=== PATIENT | male | born 1945 ===

== ENCOUNTER 2017-09-02 07:17 | Day surgery (SDC) | payer MEDICARE, OTHER ==
[2017-08-29 09:53] VITALS: BMI 29.6
[~2017-09-02 07:17] MED LIST: LACTATED RINGERS 1,000 ML IV SCH; LIDOCAINE 1% 20 ML VIAL (10MG/ML) FOR IV START INTRADERMA PRN
[2017-09-02 07:39] VITALS: RESP 18; TEMP 98.8
[2017-09-02 08:05] LABS: Glucose,Whole Blood 81 mg/dL (75-99)
[2017-09-02] MEDS ORDERED: LIDOCAINE 1% INJ 10MG/ML (20 ML MDV) ONE (09:13)
[2017-09-02] MEDS ORDERED: PROPOFOL 10 MG/ML 20 ML VIAL IV ONE (09:13)
[2017-09-02 10:32] VITALS: BP 128/81; PULSE 54
--- NOTE | 2017-09-07 20:28 | P.PCN ---
Date of Procedure: 09/02/17 Procedure(s) Performed: Procedure: Colonoscopy to hepatic flexure. Preoperative diagnosis: Altered bowel function and incomplete colonoscopy last month because of poor preparation. Postoperative diagnosis: 1. Exam could not be completed safely proximal to the hepatic flexure because of redundancy of the sigmoid and looping of the endoscope. 2. Mild diverticulosis with no evidence of acute diverticulitis or strictures. 3. No polyps, tumors or mucosal abnormalities were noted in the areas examined. Preparation: GoLYTELY prep. Sedation: Was provided by anesthesia. Brief clinical history: The patient is a 72-year-old male who had an initial evaluation on July 18, 2017. His exam could not be completed because of poor preparation and he was advised repeat exam after 2 day preparation in a week or 2. The patient was subsequently seen in the office 08/13/2017 because of diarrhea alternating with constipation and he was scheduled for a repeat attempt today. Procedure: With the patient on his left lateral decubitus position and after informed consent and adequate sedation, the perianal area was inspected and it did not show any fissures or fistulas. There were no masses felt on digital rectal examination. The Olympus CFQ 160L video colonoscope was then inserted in the rectum in the usual fashion and was advanced. There was redundancy in the sigmoid and this resulted in looping of the endoscope. I was not able to pass the endoscope safely proximal to the hepatic flexure. In the areas examined, I noted mild diverticulosis but there was no evidence of acute diverticulitis or strictures. No polyps, tumors or mucosal abnormalities were noted in the areas examined. I retroflexed the endoscope in the rectum before the endoscope was withdrawn. The patient tolerated the procedure well. Plan: I discussed at length the findings with his niece who is his legal guardian. We discussed future possible investigation including CT colonography. He has a follow-up appointment scheduled in our [place] office in [place] early September 2017. We will keep you updated on his progress.
== END 2017-09-02 10:57 | disposition home health service (06) ==
LOC: ORWHC2ENDO 07:17
DX: K57.90 Diverticulosis of intestine, part unspecified, without perforation or abscess without bleeding (principal); R19.7 Diarrhea, unspecified; K59.00 Constipation, unspecified; Q43.8 Other specified congenital malformations of intestine; I25.10 Atherosclerotic heart disease of native coronary artery without angina pectoris; I10 Essential (primary) hypertension; K21.9 Gastro-esophageal reflux disease without esophagitis; E11.9 Type 2 diabetes mellitus without complications; E78.5 Hyperlipidemia, unspecified; I25.2 Old myocardial infarction; Z95.810 Presence of automatic (implantable) cardiac defibrillator
CPT/HCPCS: 88305; 45380; J2001; J2704

== ENCOUNTER 2019-06-06 15:18 | Inpatient (IN) | payer MEDICARE, OTHER ==
[2019-06-06] MEDS: SODIUM CHLORIDE 0.9% 1,000 ML IV STA ×2 (15:30→16:19)
[2019-06-06 16:00] LABS: Glucose,Whole Blood 177 mg/dL (75-99)
[2019-06-06 16:00] LABS: HCT 40.7 % (39.0-53.0); HGB 13.4 gm/dL (13.0-17.5); MCH 32.3 pg (25.0-35.0); MCHC 32.9 g/dL (31.0-37.0); MCV 98.1 fL (80.0-100.0); Mean Platelet Volume 6.3; Platelet Count 251 k/uL (150-450); RBC 4.15 m/uL (4.30-5.90); RDW 13.3 % (11.5-15.5); WBC 6.3 k/uL (3.8-10.6)
[2019-06-06 16:10] LABS: Band Neutrophils % 8 %; Lymphocytes # (M) 0.95 k/uL (1.0-4.8); Monocytes # (M) 0.95 k/uL (0-1.0); Neutrophils % (M) 62 %; Nucleated Red Blood Cells 0 /100 WBC (0-0); Total Cells Counted 100
[2019-06-06 16:11] LABS: Poikilocytosis (M) Present
[2019-06-06 16:15] LABS: Albumin 3.5 g/dL (3.5-5.0); Calcium 8.3 mg/dL (8.4-10.2); Total Bilirubin 1.3 mg/dL (0.2-1.3); Total Protein 6.2 g/dL (6.3-8.2)
[2019-06-06] MEDS ORDERED: LIDOCAINE URO-JET JELLY 2% 5 ML KIT URETHRAL ONE (16:17)
[2019-06-06 16:22] LABS: Potassium 8.4 mmol/L (3.5-5.1)
[2019-06-06] MEDS ORDERED: SODIUM BICARB 8.4% 50 ML SYR (1 MEQ/ML) IV STA (16:23)
[2019-06-06] MEDS ORDERED: CALCIUM CHLORIDE 100 MG/ML 10 ML SYRINGE IVP STA (16:23)
[2019-06-06] MEDS ORDERED: DEXTROSE 50% SYRINGE 50 ML IVP STA (16:23)
[2019-06-06] MEDS ORDERED: INSULIN REGULAR 100 UNIT/ML VIAL IV ONE ×2 (16:23→22:36)
[2019-06-06 16:29] LABS: INR 1.1 (<1.2); Partial Thromboplastin Time 27.1 sec (22.0-30.0); Prothrombin Time 11.4 sec (9.0-12.0)
[2019-06-06] MEDS ORDERED: CALCIUM GLUCONATE 1 GM in SODIUM CHLORIDE 0.9% 100 ML IVPB ONE ×2 (16:30→23:00)
[2019-06-06] MEDS ORDERED: CALCIUM CHLORIDE 1,000 MG in SODIUM CHLORIDE 0.9% 100 ML IV STA (16:30)
[2019-06-06] MEDS ORDERED: PIPERACILLIN-TAZOBACTAM 3.375 GM in SODIUM CHLORIDE 0.9% 100 ML IVPB STA (16:31)
[2019-06-06 16:32] LABS: Magnesium 2.7 mg/dL (1.6-2.3); Phosphorus 6.4 mg/dL (2.5-4.5)
[2019-06-06] MEDS ORDERED: ALBUTEROL NEBULIZED 2.5 MG/3 ML INHALATION STA (16:33)
[2019-06-06] MEDS ORDERED: CALCIUM CHLORIDE 1 GM/10 ML VIAL ONE (16:43)
[2019-06-06 16:47] LABS: VBG PH 7.2 (7.31-7.41)
--- NOTE | 2019-06-06 16:51 | XR ---
EXAMINATION TYPE: XR chest 1V portable DATE OF EXAM: 06/06/2019 COMPARISON: NONE HISTORY: Syncope and bloating TECHNIQUE: Single frontal view of the chest is obtained. FINDINGS: There is no heart failure nor confluent pneumonic infiltrate. There is poor inspiration. T here are chest leads. There is moderate intestinal gas and fecal material. IMPRESSION: There is some mild atelectasis at the lung bases. Poor inspiration. There is probably so me intestinal ileus.
--- NOTE | 2019-06-06 16:51 | XR ---
EXAMINATION TYPE: XR KUB portable DATE OF EXAM: 06/06/2019 COMPARISON: NONE HISTORY: Syncope Pain TECHNIQUE: Single view FINDINGS: Pelvic ring is intact. Proximal femurs are intact. There is retained fecal material in the large bowel. IMPRESSION: Constipation. No fracture.
--- NOTE | 2019-06-06 17:34 | ED ---
Weakness HPI - General Chief complaint: Syncope Stated complaint: hypotension, syncope Time Seen by Provider: 06/06/19 16:14 Source: EMS, RN notes reviewed, old records reviewed Mode of arrival: EMS Limitations: altered mental status - History of Present Illness Initial comments: This is a 74-year-old male the ER for evaluation he presents today for laura luation regards to decreased responsiveness, patient is a poor historian. Per staff patient's coming from [facility] where he was very weak able to stand and then the symptoms the ER. Per EMS patient's blood pressure was low he did notice his stomach appeared to be significantly distended. Patient again is unable to give history. He is unable to give any complaint. Again blood pressure low heart rate MD Complaint: generalized weakness -: days(s) Location: generalized Severity: moderate Severity scale (1-10): 3 Quality: other (no complaints) Consistency: constant (weakness) Improves with: none Worsens with: movement Context: history of similar Associated Symptoms: chest pain, syncope (near syncope) - Related Data Home Medications Medication Instructions Recorded Confirmed Aspirin [Adult Low Dose Aspirin EC] 81 mg PO DAILY 07/18/17 06/06/19 Atenolol [Tenormin] 25 mg PO QAM 07/18/17 06/06/19 Furosemide [Lasix] 10 mg PO QAM 07/18/17 06/06/19 Lisinopril [Zestril] 2.5 mg PO HS 07/18/17 06/06/19 Metoclopramide [Reglan] 5 mg PO BID 07/18/17 06/06/19 Nitroglycerin Sl Tabs [Nitrostat] 1 tab SUBLINGUAL DAILY PRN 07/18/17 06/06/19 Polyethylene Glycol 3350 [Miralax] 17 gm PO Q48H 07/18/17 06/06/19 Venlafaxine HCl ER [Effexor Xr] 75 mg PO HS 07/18/17 06/06/19 metFORMIN HCL [Glucophage Xr] 250 mg PO HS 07/18/17 06/06/19 Atorvastatin [Lipitor] 40 mg PO HS 08/29/17 06/06/19 Cholecalciferol [Vitamin D3] 1,000 unit PO DAILY 08/29/17 06/06/19 Cyanocobalamin (Vitamin B-12) 1,000 mcg PO DAILY 08/29/17 06/06/19 [Vitamin B-12] Ibuprofen 400 mg PO BID 08/29/17 06/06/19 Melatonin 10 mg PO HS 08/29/17 06/06/19 Sulfamethox-Tmp 800-160Mg [Bactrim 1 tab PO Q12HR 08/29/17 06/06/19 DS 800-160 mg] Venlafaxine HCl [Effexor XR] 150 mg PO HS 08/29/17 06/06/19 risperiDONE [RisperDAL] 1 mg PO BID@1600,2000 08/29/17 06/06/19 Calcium Polycarbophil [Fiber-Lax] 1,250 mg PO BID 06/06/19 06/06/19 Ibuprofen [Motrin] 400 mg PO BID 06/06/19 06/06/19 Loperamide [Imodium] 4 mg PO DAILY PRN MDD 4 CAPS/24HRS 06/06/19 06/06/19 Pantoprazole [Protonix] 40 mg PO BID 06/06/19 06/06/19 Allergies Allergy/AdvReac Type Severity Reaction Status Date / Time No Known Allergies Allergy Verified 06/06/19 16:00 Review of Systems ROS Statement: Those systems with pertinent positive or pertinent negative responses have been documented in the HPI. ROS Other: All systems not noted in ROS Statement are negative. Past Medical History Past Medical History: Coronary Artery Disease (CAD), Chest Pain / Angina, Heart Failure, Dementia, Diabetes Mellitus, GERD/Reflux, Hyperlipidemia, Hypertension Additional Past Medical History / Comment(s): CURRENTLY ON ANTIBX FOR UTI, HX. 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 ATTEMPTED COLONOSCOPY Past Anesthesia/Blood Transfusion Reactions: No Reported Reaction Past Psychological History: No Psychological Hx Reported Smoking Status: Former smoker Past Alcohol Use History: None Reported Past Drug Use History: None Reported General Exam Limitations: altered mental status General appearance: alert, in no apparent distress Head exam: Present: atraumatic, normocephalic, normal inspection Eye exam: Present: normal appearance, PERRL, EOMI. Absent: scleral icterus, c onjunctival injection, periorbital swelling ENT exam: Present: normal exam, mucous membranes moist Neck exam: Present: normal inspection. Absent: tenderness, meningismus, lymphadenopathy Respiratory exam: Present: normal lung sounds bilaterally. Absent: respiratory distress, wheezes, rales, rhonchi, stridor Cardiovascular Exam: Present: regular rate, normal rhythm, normal heart sounds. Absent: systolic murmur, diastolic murmur, rubs, gallop, clicks GI/Abdominal exam: Present: soft, normal bowel sounds. Absent: distended, tenderness, guarding, rebound, rigid Extremities exam: Present: normal inspection, full ROM, normal capillary refill. Absent: tenderness, pedal edema, joint swelling, calf tenderness Back exam: Present: normal inspection Neurological exam: Present: alert, oriented X3, CN II-XII intact Psychiatric exam: Present: normal affect, normal mood Skin exam: Present: warm, dry, intact, normal color. Absent: rash Course Vital Signs 06/06/19 06/06/19 06/06/19 15:26 16:30 16:46 Temperature 97.5 F L Pulse Rate 60 58 L Respiratory 18 Rate Blood Pressure 84/50 77/55 O2 Sat by Pulse 95 97 Oximetry 06/06/19 06/06/19 06/06/19 17:00 17:02 17:37 Temperature Pulse Rate 70 73 Respiratory Rate Blood Pressure 102/52 O2 Sat by Pulse Oximetry 06/06/19 06/06/19 06/06/19 17:40 18:20 19:16 Temperature 97.9 F Pulse Rate 78 74 76 Respiratory 34 H 30 H 18 Rate Blood Pressure 87/58 85/62 113/79 O2 Sat by Pulse 97 96 96 Oximetry 06/06/19 06/06/19 06/06/19 19:37 19:50 20:00 Temperature Pulse Rate 77 78 80 Respiratory 19 18 18 Rate Blood Pressure 107/74 102/68 91/69 O2 Sat by Pulse 98 98 Oximetry 06/06/19 20:26 Temperature Pulse Rate 81 Respiratory 17 Rate Blood Pressure 104/80 O2 Sat by Pulse 97 Oximetry - Reevaluation(s) Reevaluation #1: 06/06/19 17:48 Medical records reviewed Reevaluation #2: 06/06/19 17:48 Patient's potassium comes back severely elevated he is bradycardic no significant family was fevers. Patient given calcium treatment call made for nephrology and possible dialysis Reevaluation #3: 10/27/19 17:49 Patient is difficult to pass Serrano with blood in the bladder, patient given rectal exam did is likely constipation and is bowel no significant rectal impaction noted but he does have a lot of stool flowing with digital stimulation 06/06/19 20:51 Significant improvement here in both patient's lactic and potassium level Reevaluation #4: 06/06/19 20:51 Patient has improvement heart rate, blood pressure remains about 100/60 - Consultations Consultation #1: Nephrology is paged History of surgeries paged for catheter placement for dialysis EKG Findings - EKG Comments: EKG Findings:: EKG shows sinus bradycardia rate of 61, NJ 308, QRS 172, QTc 479 EKG significant for hyperkalemia Procedures - Central Line Placement Right IJ Consent Obtained: verbal consent Patient Placed on Monitor/Pulse Ox: Yes MD Prep: mask, gown, gloves Central Line Prep: Chlorhexidine scrub Local Anesthesia Used: Lidocaine 1% Ultrasound Used for Placement: Yes Central Line Lumen Inserted: triple Central Line Position: good blood return, all ports aspirated, flushed, capped, sutured in place with 3-0 nylon Dressing Applied: Tegaderm Post Procedure X-Ray: tip of catheter in good position (RA) Patient Tolerated Procedure: well Complications: none - Rectal Disimpaction Consent Obtained: verbal consent Indication: fecal impaction Procedural Sedation: No Sedation/Analgesia: none Technique: manual disimpaction with gloved finger Result: significant stool output Complications: none Patient Tolerated Procedure: well Medical Decision Making - Medical Decision Making 74 male the ER for evaluation of weakness and near syncope secondary dehydration bradycardia secondary to hyperkalemia. Is improved. Patient's medically hydrated. Patient will be admitted to telemetry for evaluation and treatment - Lab Data Result diagrams: 06/06/19 15:43 06/06/19 19:22 Lab Results 06/06/19 06/06/19 06/06/19 Range/Units 15:43 15:43 15:43 WBC 6.3 (3.8-10.6) k/uL RBC 4.15 L (4.30-5.90) m/uL Hgb 13.4 (13.0-17.5) gm/dL Hct 40.7 (39.0-53.0) % MCV 98.1 (80.0-100.0) fL MCH 32.3 (25.0-35.0) pg MCHC 32.9 (31.0-37.0) g/dL RDW 13.3 (11.5-15.5) % Plt Count 251 (150-450) k/uL Neutrophils % (Manual) 62 % Band Neutrophils % 8 % Lymphocytes % (Manual) 15 % Monocytes % (Manual) 15 % Neutrophils # (Manual) 4.40 (1.3-7.7) k/uL Lymphocytes # (Manual) 0.95 L (1.0-4.8) k/uL Monocytes # (Manual) 0.95 (0-1.0) k/uL Nucleated RBCs 0 (0-0) /100 WBC Manual Slide Review Performed Poikilocytosis (manual Present PT (9.0-12.0) sec INR (<1.2) APTT (22.0-30.0) sec VBG pH (7.31-7.41) VBG pCO2 (37-51) mmHg VBG HCO3 (24-28) mmol/L Sodium 136 L (137-145) mmol/L Potassium 8.4 H* (3.5-5.1) mmol/L Chloride 107 (98-107) mmol/L Carbon Dioxide 15 L (22-30) mmol/L Anion Gap 14 mmol/L BUN 63 H (9-20) mg/dL Creatinine 2.50 H (0.66-1.25) mg/dL Est GFR (CKD-EPI)AfAm 29 (>60 ml/min/1.73 sqM) Est GFR (CKD-EPI)NonAf 25 (>60 ml/min/1.73 sqM) Glucose 174 H (74-99) mg/dL POC Glucose (mg/dL) (75-99) mg/dL POC Glu Biztalk Developer ID Lactic Ac Sepsis Rflx Plasma Lactic Acid Alvaro 4.9 H* (0.7-2.0) mmol/L Calcium 8.3 L (8.4-10.2) mg/dL Phosphorus (2.5-4.5) mg/dL Magnesium (1.6-2.3) mg/dL Total Bilirubin 1.3 (0.2-1.3) mg/dL AST 41 (17-59) U/L ALT 29 (21-72) U/L Alkaline Phosphatase 94 (38-126) U/L Troponin I (0.000-0.034) ng/mL Total Protein 6.2 L (6.3-8.2) g/dL Albumin 3.5 (3.5-5.0) g/dL 06/06/19 06/06/19 06/06/19 Range/Units 15:43 15:43 15:43 WBC (3.8-10.6) k/uL RBC (4.30-5.90) m/uL Hgb (13.0-17.5) gm/dL Hct (39.0-53.0) % MCV (80.0-100.0) fL MCH (25.0-35.0) pg MCHC (31.0-37.0) g/dL RDW (11.5-15.5) % Plt Count (150-450) k/uL Neutrophils % (Manual) % Band Neutrophils % % Lymphocytes % (Manual) % Monocytes % (Manual) % Neutrophils # (Manual) (1.3-7.7) k/uL Lymphocytes # (Manual) (1.0-4.8) k/uL Monocytes # (Manual) (0-1.0) k/uL Nucleated RBCs (0-0) /100 WBC Manual Slide Review Poikilocytosis (manual PT 11.4 (9.0-12.0) sec INR 1.1 (<1.2) APTT 27.1 (22.0-30.0) sec VBG pH (7.31-7.41) VBG pCO2 (37-51) mmHg VBG HCO3 (24-28) mmol/L Sodium (137-145) mmol/L Potassium (3.5-5.1) mmol/L Chloride (98-107) mmol/L Carbon Dioxide (22-30) mmol/L Anion Gap mmol/L BUN (9-20) mg/dL Creatinine (0.66-1.25) mg/dL Est GFR (CKD-EPI)AfAm (>60 ml/min/1.73 sqM) Est GFR (CKD-EPI)NonAf (>60 ml/min/1.73 sqM) Glucose (74-99) mg/dL POC Glucose (mg/dL) (75-99) mg/dL POC Glu Biztalk Developer ID Lactic Ac Sepsis Rflx Plasma Lactic Acid Alvaro (0.7-2.0) mmol/L Calcium (8.4-10.2) mg/dL Phosphorus 6.4 H (2.5-4.5) mg/dL Magnesium 2.7 H (1.6-2.3) mg/dL Total Bilirubin (0.2-1.3) mg/dL AST (17-59) U/L ALT (21-72) U/L Alkaline Phosphatase (38-126) U/L Troponin I 0.016 (0.000-0.034) ng/mL Total Protein (6.3-8.2) g/dL Albumin (3.5-5.0) g/dL 06/06/19 06/06/19 06/06/19 Range/Units 15:58 16:20 16:22 WBC (3.8-10.6) k/uL RBC (4.30-5.90) m/uL Hgb (13.0-17.5) gm/dL Hct (39.0-53.0) % MCV (80.0-100.0) fL MCH (25.0-35.0) pg MCHC (31.0-37.0) g/dL RDW (11.5-15.5) % Plt Count (150-450) k/uL Neutrophils % (Manual) % Band Neutrophils % % Lymphocytes % (Manual) % Monocytes % (Manual) % Neutrophils # (Manual) (1.3-7.7) k/uL Lymphocytes # (Manual) (1.0-4.8) k/uL Monocytes # (Manual) (0-1.0) k/uL Nucleated RBCs (0-0) /100 WBC Manual Slide Review Poikilocytosis (manual PT (9.0-12.0) sec INR (<1.2) APTT (22.0-30.0) sec VBG pH 7.20 L* (7.31-7.41) VBG pCO2 45 (37-51) mmHg VBG HCO3 17 L (24-28) mmol/L Sodium (137-145) mmol/L Potassium (3.5-5.1) mmol/L Chloride (98-107) mmol/L Carbon Dioxide (22-30) mmol/L Anion Gap mmol/L BUN (9-20) mg/dL Creatinine (0.66-1.25) mg/dL Est GFR (CKD-EPI)AfAm (>60 ml/min/1.73 sqM) Est GFR (CKD-EPI)NonAf (>60 ml/min/1.73 sqM) Glucose (74-99) mg/dL POC Glucose (mg/dL) 177 H (75-99) mg/dL POC Glu Biztalk Developer ID Asim Richard Lactic Ac Sepsis Rflx Y Plasma Lactic Acid Alvaro (0.7-2.0) mmol/L Calcium (8.4-10.2) mg/dL Phosphorus (2.5-4.5) mg/dL Magnesium (1.6-2.3) mg/dL Total Bilirubin (0.2-1.3) mg/dL AST (17-59) U/L ALT (21-72) U/L Alkaline Phosphatase (38-126) U/L Troponin I (0.000-0.034) ng/mL Total Protein (6.3-8.2) g/dL Albumin (3.5-5.0) g/dL 06/06/19 06/06/19 Range/Units 19:22 19:44 WBC (3.8-10.6) k/uL RBC (4.30-5.90) m/uL Hgb (13.0-17.5) gm/dL Hct (39.0-53.0) % MCV (80.0-100.0) fL MCH (25.0-35.0) pg MCHC (31.0-37.0) g/dL RDW (11.5-15.5) % Plt Count (150-450) k/uL Neutrophils % (Manual) % Band Neutrophils % % Lymphocytes % (Manual) % Monocytes % (Manual) % Neutrophils # (Manual) (1.3-7.7) k/uL Lymphocytes # (Manual) (1.0-4.8) k/uL Monocytes # (Manual) (0-1.0) k/uL Nucleated RBCs (0-0) /100 WBC Manual Slide Review Poikilocytosis (manual PT (9.0-12.0) sec INR (<1.2) APTT (22.0-30.0) sec VBG pH (7.31-7.41) VBG pCO2 (37-51) mmHg VBG HCO3 (24-28) mmol/L Sodium (137-145) mmol/L Potassium 6.5 H* (3.5-5.1) mmol/L Chloride (98-107) mmol/L Carbon Dioxide (22-30) mmol/L Anion Gap mmol/L BUN (9-20) mg/dL Creatinine (0.66-1.25) mg/dL Est GFR (CKD-EPI)AfAm (>60 ml/min/1.73 sqM) Est GFR (CKD-EPI)NonAf (>60 ml/min/1.73 sqM) Glucose (74-99) mg/dL POC Glucose (mg/dL) (75-99) mg/dL POC Glu Biztalk Developer ID Lactic Ac Sepsis Rflx Plasma Lactic Acid Alvaro 2.1 H* (0.7-2.0) mmol/L Calcium (8.4-10.2) mg/dL Phosphorus (2.5-4.5) mg/dL Magnesium (1.6-2.3) mg/dL Total Bilirubin (0.2-1.3) mg/dL AST (17-59) U/L ALT (21-72) U/L Alkaline Phosphatase (38-126) U/L Troponin I (0.000-0.034) ng/mL Total Protein (6.3-8.2) g/dL Albumin (3.5-5.0) g/dL - Radiology Data Radiology results: report reviewed (Chest x-ray and x-ray KUB shows likely ileus versus mild obstruction, CT abdomen and pelvis is pending), image reviewed Critical Care Time Critical Care Time: Yes Total Critical Care Time: 102 Disposition Clinical Impression: Near syncope, Ileus, Dehydration, ARF (acute renal failure), Hyperkalemia Disposition: ADMITTED IP TO THIS [facility] Condition: Serious Is patient prescribed a controlled substance at d/c from ED?: No
[2019-06-06] MEDS ORDERED: SODIUM CHLORIDE 0.9% 500 ML 500 ML IV STA (18:56)
[2019-06-06] MEDS ORDERED: SODIUM CHLORIDE 0.9% 1,000 ML IV STA (18:56)
--- NOTE | 2019-06-06 19:12 | XR ---
EXAMINATION TYPE: XR chest 1V DATE OF EXAM: 06/06/2019 COMPARISON: Today HISTORY: Central line placement TECHNIQUE: Single frontal view of the chest is obtained. FINDINGS: There is right jugular catheter with the tip in the lower right atrium. Lungs are clear of consolidation. There is no heart failure. There are chest leads. There is large amount of intestinal gas. IMPRESSION: Inspiration improved slightly compared to exam earlier today. No pneumothorax. No heart failure. Intestinal ileus.
[2019-06-06] MEDS: DEXTROSE 5% IN WATER 1,000 ML with SODIUM BICARB (1 MEQ/ML) 150 ML IV SCH (19:49)
[2019-06-06] MEDS ORDERED: SENNOSIDES-DOCUSATE SODIUM 1 EACH TAB PO STA (19:57)
[2019-06-06] MEDS ORDERED: IPRATROPIUM-ALBUTEROL 3 ML NEB INHALATION PRN (20:06)
[2019-06-06] MEDS ORDERED: NALOXONE 0.4 MG/ML 1 ML VIAL IV PRN (20:06)
[2019-06-06] MEDS ORDERED: LACTATED RINGERS 1,000 ML IV SCH (20:15)
[2019-06-06] MEDS ORDERED: DOCUSATE 100 MG CAP PO SCH (21:00)
[2019-06-06] MEDS ORDERED: SENNOSIDES 8.6 MG TAB PO SCH (21:00)
--- NOTE | 2019-06-06 21:00 | CT ---
EXAMINATION TYPE: CT abdomen pelvis wo con DATE OF EXAM: 06/06/2019 COMPARISON: 05/03/2014 HISTORY: Abdominal pain and diarrhea. CT DLP: 1127.4 mGycm Automated exposure control for dose reduction was used. TECHNIQUE: Helical acquisition of images was performed from the lung bases through the pelvis. FINDINGS: Multiple axial sections were obtained from the diaphragm to the floor the pelvis without contrast. There is some patchy atelectasis at the lung bases. There is no pleural effusion. Liver shows no foca l defect. There are multiple surgical clips at the anterior aspect of the liver that could relate to previous liver resection or liver surgery. The spleen is intact. There is pancreatic atrophy. The esvin e ducts are not dilated. Gallbladder appears absent. There is no adrenal mass. Kidneys have bilateral mild hydronephrosis. There is bilateral proximal hyd roureter. The urinary bladder is large and displaced to the right side due to markedly enlarged sigmo id colon. There is no free fluid in the pelvis. There is no inguinal hernia. There is a markedly dilated rectosigmoid colon. Mid sigmoid colon measures 12 cm. There is significan t rectal fecal impaction. The rectum measures 8 cm. The remainder of the entire large bowel is dilate d with air and fluid and fecal material. Small bowel is not dilated. There is no sign of pneumoperito neum. There is no free fluid in the pelvis. There is no ascites. There is a mild degenerative first-degree L4-5 spondylolisthesis. There is no lumbar compression frac ture. Bony pelvis is intact. Impression Markedly dilated colon especially the rectosigmoid colon with rectal fecal impaction. No free air. Di lation is significantly increased compared to old CT scan. This is consistent with generalized large bowel ileus. Mild bilateral hydronephrosis increased compared to last exam and probably due to extrinsic compressi on on the distal ureters. There is some patchy atelectasis at the lung bases similar to old exam.
[2019-06-06 21:40] LABS: Calcium 8.4 mg/dL (8.4-10.2)
[2019-06-06 21:44] LABS: Potassium 6.7 mmol/L (3.5-5.1)
[2019-06-06 21:47] LABS: Glucose,Whole Blood 90 mg/dL (75-99)
[2019-06-06] MEDS ORDERED: SODIUM BICARB 8.4% 50 ML SYR (1 MEQ/ML) IV ONE (22:36)
[2019-06-06] MEDS ORDERED: DEXTROSE 10 % IN WATER 250 ML IV ONE (22:36)
[2019-06-06] MEDS ORDERED: ACETAMINOPHEN TAB 325 MG TAB PO PRN (22:51)
[2019-06-07 04:51] LABS: HCT 43.6 % (39.0-53.0); HGB 14.8 gm/dL (13.0-17.5); MCH 32.2 pg (25.0-35.0); MCV 94.7 fL (80.0-100.0); Mean Platelet Volume 6.1; Platelet Count 246 k/uL (150-450); RBC 4.61 m/uL (4.30-5.90); RDW 13.4 % (11.5-15.5); WBC 7.1 k/uL (3.8-10.6)
[2019-06-07 05:01] LABS: Albumin 3.1 g/dL (3.5-5.0); Calcium 8.3 mg/dL (8.4-10.2); Magnesium 2.6 mg/dL (1.6-2.3); Phosphorus 4.5 mg/dL (2.5-4.5); Total Bilirubin 1.1 mg/dL (0.2-1.3); Total Protein 5.7 g/dL (6.3-8.2)
[2019-06-07 05:15] LABS: Band Neutrophils % 26 %; Lymphocytes # (M) 0.43 k/uL (1.0-4.8); Monocytes # (M) 1.35 k/uL (0-1.0); Myelocytes # (M) 0.07 k/uL (0); Myelocytes % 1 %; Neutrophils % (M) 48 %; Nucleated Red Blood Cells 0 /100 WBC (0-0); Poikilocytosis (M) Present; Total Cells Counted 200
[2019-06-07] MEDS ORDERED: DEXTROSE 10 % IN WATER 250 ML IV ONE (06:03)
[2019-06-07] MEDS ORDERED: INSULIN REGULAR 100 UNIT/ML VIAL IV ONE (06:03)
[2019-06-07] MEDS ORDERED: CALCIUM GLUCONATE 1 GM in SODIUM CHLORIDE 0.9% 100 ML IVPB ONE (07:00)
[2019-06-07] MEDS: DEXTROSE 5% IN WATER 1,000 ML with SODIUM BICARB (1 MEQ/ML) 150 ML IV SCH (07:07)
[2019-06-07 07:19] LABS: Glucose,Whole Blood 233 mg/dL (75-99)
--- NOTE | 2019-06-07 07:36 | P.OP ---
Date of Procedure: 06/07/19 Description of Procedure: SURGEON: Renée Serrano DO ELECTRONIC PAGINATION SYSTEM OPERATOR: None PREOPERATIVE DIAGNOSIS: Worsening kidney injury, hyperkalemia, hematuria POSTOPERATIVE DIAGNOSIS: Same OPERATION: Placement of dialysis catheter, right femoral. Ultrasound-guided right common femoral vein access DESCRIPTION OF PROCEDURE: An ultrasound was utilized and the right common femoral vein was identified. The right groin was prepped and draped with ChloraPrep. Lidocaine was infiltrated. A multipurpose needle was utilized to access the right femoral vein with ultrasound guidance. Guidewire was passed. Dilator advanced on top of the guidewire. Right femoral catheter was placed, which was secured with 3-0 silk. Dressing applied. The patient tolerated the procedure well.
[2019-06-07] MEDS ORDERED: ENOXAPARIN 40 MG/0.4 ML SYRINGE SQ SCH (09:00)
[2019-06-07] MEDS ORDERED: PANTOPRAZOLE 40 MG/10 ML VIAL IV SCH (09:00)
--- NOTE | 2019-06-07 09:43 | CONS ---
CONSULTATION PULMONARY/CRITICAL CARE CONSULTATION: DATE OF SERVICE: 06/07/2019 This is a 74-year-old gentleman who apparently sees one of the Visiting Physicians. He apparently presented to the emergency room with hypotension, elevated lactic acid, and syncope. He also apparently had mental status changes. He was found to be a very poor historian in the emergency department. He apparently came in from an ECF where he was profoundly weak. The patient's abdomen was very distended. He himself was unable to give any history. He was apparently seen there primarily for the symptoms mentioned above, including mental status changes, hypotension, syncope, and distended abdomen. The patient was found to have hyperkalemia. Hemodialysis catheter was placed. He is undergoing hemodialysis currently. He is currently on 4 L nasal cannula. His respiratory rate is rapid. He is getting D5W with 3 amps of bicarb at 100 mL an hour. The patient was also found to have acute kidney injury. Hence, the dialysis. I asked the nurse to place an NG tube. His blood pressure is low, so I said start Levophed. We are going to check a cortisol level as well. Most of the history is obtained from the ER stacey. CURRENT HOME MEDICATIONS: Include low-dose aspirin, Tenormin, Lasix, Zestril, Reglan, nitroglycerin tablets, MiraLAX, Effexor XR, metformin, Lipitor, vitamin D3, vitamin B12, ibuprofen, melatonin, Bactrim, Effexor XR, Risperdal, Fiber-Lax, Motrin, Imodium, and Protonix. ALLERGIES: Denied. MEDICAL HISTORY: According to the ER stacey includes CAD, angina, heart failure, dementia, diabetes, GERD, hyperlipidemia, and hypertension. He is currently on Bactrim for a UTI. He apparently does have a history of congenital cognitive impairment and very delayed communication skills. He also has a prior history of MRSA infection. SURGICAL HISTORY: Includes cholecystectomy, colonoscopy, cataract surgery. SOCIAL HISTORY: Positive for previous tobacco use. No history of alcohol or illicit drug use. The patient's family history could not be obtained. No family members are present. He himself cannot give any family history. REVIEW OF SYSTEMS: Again review of systems cannot be accurately obtained. The patient is a very poor historian, does not really communicate. The patient really does not verbalize any particular complaints prior to coming to the hospital. Again most of the history is obtained from the ER stacey. PHYSICAL EXAMINATION: Current vital signs are reviewed, temperature is 99.2, heart rate 103, respiratory rate 22, blood pressure 95/56 with mean of 69, 2 L saturation 95%. Appears tachypneic. HEENT: Examination is grossly unremarkable. Nasal O2 noted. NECK: Supple. Full range of motion. No adenopathy. Neck veins are flat. CARDIOVASCULAR: Examination reveals tachycardia. Heart rate 103. It is regular. LUNGS: Reveal relatively clear breath sounds. A few scattered mild rhonchi. No wheezes or crackles. ABDOMEN: Very distended. No bowel sounds are noted. He is somewhat tender on palpation. EXTREMITIES: Intact. Minimal edema. SKIN: Without rash. NEUROLOGIC: Examination is difficult to assess. LABS: Reviewed. White count 7.1, hemoglobin 14.8, hematocrit 43.6, platelet count 346,000. PT, INR, PTT normal. Venous blood gases show pH of 7.2. Sodium 136, potassium 7, chloride is 103, CO2 is 22, anion gap is 11. BUN and creatinine were 70 and 2.24 compared to 63 and 2.07 on admission. Calcium 8.3, magnesium 2.6, AST 102, ALT is 90. C. diff was negative. A chest x-ray shows small lung volumes. There was atelectasis at the lung bases. The KUB shows constipation. A subsequent chest x-ray shows improved inspiration. Abdomen and pelvic CT shows atelectasis at the lung bases. Bilateral mild hydronephrosis, and bilateral proximal hydroureter. Dilatation of the rectosigmoid colon is noted. Significant rectal fecal impaction. Microbiology is pending or negative. Medications are reviewed. ASSESSMENT: 1. Acute kidney injury with hyperkalemia, currently undergoing hemodialysis. 2. Mental status changes with hypotension and syncope, rule out infection. 3. History of coronary artery disease. 4. History of angina. 5. History of congestive heart failure. 6. History of dementia. 7. Diabetes mellitus. 8. Gastroesophageal reflux disease. 9. Hyperlipidemia. 10.Hypertension. 11.Severe cognitive impairment with delayed communication skills. 12.Lactic acidosis, improved. 13.Profound hyperkalemia. 14.Non-anion gap metabolic acidosis. 15.Rule out bowel obstruction. PLAN: Surgery has been consulted. I have asked the nurse to put down an NG tube to see if we cannot decompress the stomach a bit and relieve some of his abdominal distention. Check cortisol level. Will place him on some Levophed to maintain a more appropriate blood pressure. He is currently undergoing hemodialysis primarily for the hyperkalemia. I will talk to the family once they arrive about code status. Additional recommendations and suggestions are forthcoming. Prognosis is guarded. We will go ahead and check the medications and discontinue all unnecessary medications. MMODL / IJN: [id number] /
--- NOTE | 2019-06-07 09:48 | XR ---
EXAMINATION TYPE: XR chest 1V DATE OF EXAM: 06/07/2019 COMPARISON: Prior chest x-ray 06/06/2019 HISTORY: This of breath TECHNIQUE: Single frontal view of the chest is obtained. FINDINGS: Right jugular central venous catheter shows the tip in the right atrium. Lung volumes are low. No pneumothorax. Subsegmental basilar atelectatic changes are likely present. Heart size is stab le. Patient is rotated. Gas distended loops of bowel are present in the upper abdomen as on prior. Edwards rgical clips present right upper quadrant. There are overlying surgical leads. IMPRESSION: Expiratory rotated exam. Subsegmental basilar atelectasis. Persistent dilation of the co rylee, correlate to exclude bowel obstruction.
[2019-06-07] MEDS: NOREPINEPHRINE 8 MG in SODIUM CHLORIDE 0.9% 250 ML IV SCH ×2 (09:54→15:12)
--- NOTE | 2019-06-07 10:09 | P.NPCON ---
History of Present Illness - Reason for Consult acute renal failure, hyperkalemia - History of Present Illness Reason for consultation: Acute kidney injury and hyperkalemia History of present illness: Patient is a 74-year-old male seen in consultation for acute kidney injury and hyperkalemia. Patient is somewhat confused and not a reliable historian. Patient presented from an extended care facility due to generalized weakness. He was unable to stand. Patient's blood pressure was noted to be low in the systolic 70s. He has received over 5 L of fluid bolus since admission. He is also noted to have a significantly distended abdomen. CT of the abdomen and pelvis revealed large bowel ileus along with mild bilateral hydronephrosis. Patient's potassium level was 8.4 on admission which was treated medically multiple times. This morning he was 7.0. Dialysis catheter has been placed and is currently seen while undergoing emergent hemodialysis. He is currently maintained on bicarb drip at 100 mL an hour. Levophed has also been initiated. He remains oliguric. Bladder scan reveals over 700 mL of urine. The Serrano catheter appears to be clotted. I do note Bactrim in his home medications however I'm not sure if he was actively taking it prior to this admission. Additionally he was also on Lasix, lisinopril as well as ibuprofen which can all lead to acute kidney injury. Vital signs are stable. General: The patient appeared well nourished and normally developed. HEENT: Head exam is unremarkable. Neck is without jugular venous distension. LUNGS: Lungs are clear to auscultation and percussion. Breath sounds decreased. HEART: Rate and Rhythm are regular. First and second heart sounds normal. No murmurs, rubs or gallops. ABDOMEN: Distended. Nontender to touch. EXTREMITITES: No clubbing, cyanosis, or edema. Past Medical History Past Medical History: Coronary Artery Disease (CAD), Chest Pain / Angina, Heart Failure, Dementia, Diabetes Mellitus, GERD/Reflux, Hyperlipidemia, Hypertension Additional Past Medical History / Comment(s): CURRENTLY ON ANTIBX FOR UTI, HX. CONGENITAL COGNITIVE IMPAIRMENT, DELAYED COMMUNICATION SKILLS History of Any Multi-Drug Resistant Organisms: MRSA Date of last positivie culture/infection: MRSA unknown location 2018 MDRO Source:: right armpit Past Surgical History: Cholecystectomy Additional Past Surgical History / Comment(s): CATARACT SURGERY, PREV. ATTEMPTED COLONOSCOPY Past Anesthesia/Blood Transfusion Reactions: No Reported Reaction Past Psychological History: No Psychological Hx Reported Smoking Status: Former smoker Past Alcohol Use History: None Reported Past Drug Use History: None Reported Medications and Allergies Home Medications Medication Instructions Recorded Confirmed Type Aspirin [Adult Low Dose Aspirin EC] 81 mg PO DAILY 07/18/17 06/06/19 History Atenolol [Tenormin] 25 mg PO QAM 07/18/17 06/06/19 History Furosemide [Lasix] 10 mg PO QAM 07/18/17 06/06/19 History Lisinopril [Zestril] 2.5 mg PO HS 07/18/17 06/06/19 History Metoclopramide [Reglan] 5 mg PO BID 07/18/17 06/06/19 History Nitroglycerin Sl Tabs [Nitrostat] 1 tab SUBLINGUAL DAILY PRN 07/18/17 06/06/19 History Polyethylene Glycol 3350 [Miralax] 17 gm PO Q48H 07/18/17 06/06/19 History Venlafaxine HCl ER [Effexor Xr] 75 mg PO HS 07/18/17 06/06/19 History metFORMIN HCL [Glucophage Xr] 250 mg PO HS 07/18/17 06/06/19 History Atorvastatin [Lipitor] 40 mg PO HS 08/29/17 06/06/19 History Cholecalciferol [Vitamin D3] 1,000 unit PO DAILY 08/29/17 06/06/19 History Cyanocobalamin (Vitamin B-12) 1,000 mcg PO DAILY 08/29/17 06/06/19 History [Vitamin B-12] Ibuprofen 400 mg PO BID 08/29/17 06/06/19 History Melatonin 10 mg PO HS 08/29/17 06/06/19 History Sulfamethox-Tmp 800-160Mg [Bactrim 1 tab PO Q12HR 08/29/17 06/06/19 History DS 800-160 mg] Venlafaxine HCl [Effexor XR] 150 mg PO HS 08/29/17 06/06/19 History risperiDONE [RisperDAL] 1 mg PO BID@1600,2000 08/29/17 06/06/19 History Calcium Polycarbophil [Fiber-Lax] 1,250 mg PO BID 06/06/19 06/06/19 History Ibuprofen [Motrin] 400 mg PO BID 06/06/19 06/06/19 History Loperamide [Imodium] 4 mg PO DAILY PRN MDD 4 CAPS/24HRS 06/06/19 06/06/19 History Pantoprazole [Protonix] 40 mg PO BID 06/06/19 06/06/19 History Allergies Allergy/AdvReac Type Severity Reaction Status Date / Time No Known Allergies Allergy Verified 06/06/19 16:00 Physical Exam Vitals: Vital Signs Temp Pulse Resp BP BP Pulse Ox 06/07/19 04:00 99.2 F 103 H 22 95/56 95 06/07/19 03:00 100 30 H 98/76 94 L 06/07/19 02:00 111 H 21 108/89 94 L 06/07/19 01:00 98 13 90/63 95 06/07/19 00:00 99.7 F H 97 35 H 112/77 94 L 06/06/19 23:00 90 27 H 112/77 95 06/06/19 22:00 96 46 H 109/81 91 L 06/06/19 21:00 79 34 H 90/55 98 06/06/19 20:40 89 18 90/55 98 06/06/19 20:37 100 F H 24 112/77 94 L 06/06/19 20:26 81 17 104/80 97 06/06/19 20:00 80 18 91/69 98 06/06/19 19:50 78 18 102/68 06/06/19 19:37 77 19 107/74 98 06/06/19 19:16 76 18 113/79 96 06/06/19 18:20 74 30 H 85/62 96 06/06/19 17:40 97.9 F 78 34 H 87/58 97 06/06/19 17:37 73 06/06/19 17:02 70 06/06/19 17:00 102/52 06/06/19 16:46 58 L 06/06/19 16:30 77/55 97 06/06/19 15:26 97.5 F L 60 18 84/50 95 Intake and Output 06/06/19 06/07/19 06/07/19 22:59 06:59 14:59 Intake Total 200 1350 Output Total 35 35 Balance 165 1315 Intake: IV 200 600 Dextrose 5% in Water 1, 200 600 000 ml @ 100 mls/hr IV . [id number] JULI with Sodium Bicarb (1 Meq/ml) 150 ml Rx#:[id number] Oral 750 Output: Urine 35 35 Uretheral (Serrano) 20 Other: Voiding Method Indwelling Catheter # Bowel Movements 2 Weight 72.575 kg 74.1 kg Results - Lab Results Most recent lab results Calcium 8.3 mg/dL (8.4-10.2) L 06/07/19 04:40 Phosphorus 4.5 mg/dL (2.5-4.5) 06/07/19 04:40 Magnesium 2.6 mg/dL (1.6-2.3) H 06/07/19 04:40 06/07/19 04:40 06/07/19 09:07 Assessment and Plan Plan: Assessment: 1. Acute kidney injury secondary to ATN secondary to hypotension. Also concern for underlying urinary retention and obstructive uropathy. Creatinine 2.2 for this morning. Unknown baseline renal function. 2. Hyperkalemia secondary to acute kidney injury, metabolic acidosis and obstructive uropathy. Additionally in his home meds I do see Bactrim and sulaiman nopril listed which will also induce hyperkalemia. 3. Metabolic acidosis secondary to acute kidney injury. Better. 4. Large bowel ileus. Questionable obstruction. Surgery consulted. 5. Bilateral hydronephrosis and urinary retention. 6. Hypotension now on Levophed. Plan: Discontinue bicarbonate drip. Start normal saline at 75 mL an hour. Currently seen while undergoing hemodialysis. Consider urology consultation for retention and clotted Serrano catheter. Avoid nephrotoxins. Wean Levophed. Continue to monitor renal function and urine output. Assessment daily for need for renal replacement therapy. Repeat potassium level this evening. Thank you for the consultation. I will continue to follow the patient with you during his hospital stay.
[2019-06-07] MEDS ORDERED: SODIUM CHLORIDE 0.9% 1,000 ML IV SCH (10:15)
[2019-06-07 10:18] VITALS: TEMP 98
[2019-06-07] MEDS ORDERED: MINERAL OIL 133 ML ENEMA RECTAL STA (11:19)
[2019-06-07 11:22] VITALS: BMI 24.8
--- NOTE | 2019-06-07 11:34 | P.HPIM ---
History of Present Illness H&P Date: 06/07/19 Was not notified of this patient's admission until this morning. Patient seen in the MICU at 8:30 am The patient is a 74 yo M, resident of an assisted living facility ([facility]), with a PMH of CAD, CHF (unknown type), dementia (cognitive impairment since ), HTN, HLD, and Type 2 DM had presented to the ED for decreased responsiveness. History obtained from chart since patient is a very poor historian and not answering questions appropriately. He had hypotension in the ED along with a lactic acidosis and significant hyperkalemia. The patient had undergone an extensive evaluation in the emergency room w/ CT abd/pelvis showing fecal impaction with no free air along with esvin hydronephrosis with compression of the distal ureters. As per the niece at the bedside (Liebler, Jena - Legal guardian), the patient is normally oriented to self and place and is able to ambulate without assistance though had been getting weaker over the past 1 year. Laboratory evaluation had revealed a lactate of 4.9, K of 6.7, BUN 63, creatinine 2.07, WBC count 6.3, Hgb 13.4, platelets 251, and pH of 7.20. A hemodialysis catheter was inserted and nephrology was consulted. The patient's blood pressure continued to be low in the ICU for which a levophed infusion was ordered. Review of Systems ROS unobtainable: due to mental status Past Medical History Past Medical History: Coronary Artery Disease (CAD), Chest Pain / Angina, Heart Failure, Dementia, Diabetes Mellitus, GERD/Reflux, Hyperlipidemia, Hypertension Additional Past Medical History / Comment(s): CURRENTLY ON ANTIBX FOR UTI, HX. CONGENITAL COGNITIVE IMPAIRMENT, DELAYED COMMUNICATION SKILLS History of Any Multi-Drug Resistant Organisms: MRSA Date of last positivie culture/infection: MRSA unknown location 2018 MDRO Source:: right armpit Past Surgical History: Cholecystectomy Additional Past Surgical History / Comment(s): CATARACT SURGERY, PREV. ATTEMPTED COLONOSCOPY Past Anesthesia/Blood Transfusion Reactions: No Reported Reaction Past Psychological History: No Psychological Hx Reported Smoking Status: Former smoker Past Alcohol Use History: None Reported Past Drug Use History: None Reported Medications and Allergies Home Medications Medication Instructions Recorded Confirmed Type Aspirin [Adult Low Dose Aspirin EC] 81 mg PO DAILY 07/18/17 06/06/19 History Atenolol [Tenormin] 25 mg PO QAM 07/18/17 06/06/19 History Furosemide [Lasix] 10 mg PO QAM 07/18/17 06/06/19 History Lisinopril [Zestril] 2.5 mg PO HS 07/18/17 06/06/19 History Metoclopramide [Reglan] 5 mg PO BID 07/18/17 06/06/19 History Nitroglycerin Sl Tabs [Nitrostat] 1 tab SUBLINGUAL DAILY PRN 07/18/17 06/06/19 History Polyethylene Glycol 3350 [Miralax] 17 gm PO Q48H 07/18/17 06/06/19 History Venlafaxine HCl ER [Effexor Xr] 75 mg PO HS 07/18/17 06/06/19 History metFORMIN HCL [Glucophage Xr] 250 mg PO HS 07/18/17 06/06/19 History Atorvastatin [Lipitor] 40 mg PO HS 08/29/17 06/06/19 History Cholecalciferol [Vitamin D3] 1,000 unit PO DAILY 08/29/17 06/06/19 History Cyanocobalamin (Vitamin B-12) 1,000 mcg PO DAILY 08/29/17 06/06/19 History [Vitamin B-12] Ibuprofen 400 mg PO BID 08/29/17 06/06/19 History Melatonin 10 mg PO HS 08/29/17 06/06/19 History Sulfamethox-Tmp 800-160Mg [Bactrim 1 tab PO Q12HR 08/29/17 06/06/19 History DS 800-160 mg] Venlafaxine HCl [Effexor XR] 150 mg PO HS 08/29/17 06/06/19 History risperiDONE [RisperDAL] 1 mg PO BID@1600,2000 08/29/17 06/06/19 History Calcium Polycarbophil [Fiber-Lax] 1,250 mg PO BID 06/06/19 06/06/19 History Ibuprofen [Motrin] 400 mg PO BID 06/06/19 06/06/19 History Loperamide [Imodium] 4 mg PO DAILY PRN MDD 4 CAPS/24HRS 06/06/19 06/06/19 History Pantoprazole [Protonix] 40 mg PO BID 06/06/19 06/06/19 History Allergies Allergy/AdvReac Type Severity Reaction Status Date / Time No Known Allergies Allergy Verified 06/06/19 16:00 Physical Exam Vitals: Vital Signs Temp Pulse Resp BP BP Pulse Ox 06/07/19 04:00 99.2 F 103 H 22 95/56 95 06/07/19 03:00 100 30 H 98/76 94 L 06/07/19 02:00 111 H 21 108/89 94 L 06/07/19 01:00 98 13 90/63 95 06/07/19 00:00 99.7 F H 97 35 H 112/77 94 L 06/06/19 23:00 90 27 H 112/77 95 06/06/19 22:00 96 46 H 109/81 91 L 06/06/19 21:00 79 34 H 90/55 98 06/06/19 20:40 89 18 90/55 98 06/06/19 20:37 100 F H 24 112/77 94 L 06/06/19 20:26 81 17 104/80 97 06/06/19 20:00 80 18 91/69 98 06/06/19 19:50 78 18 102/68 06/06/19 19:37 77 19 107/74 98 06/06/19 19:16 76 18 113/79 96 06/06/19 18:20 74 30 H 85/62 96 06/06/19 17:40 97.9 F 78 34 H 87/58 97 06/06/19 17:37 73 06/06/19 17:02 70 06/06/19 17:00 102/52 06/06/19 16:46 58 L 06/06/19 16:30 77/55 97 06/06/19 15:26 97.5 F L 60 18 84/50 95 Intake and Output 06/06/19 06/07/19 06/07/19 22:59 06:59 14:59 Intake Total 200 1350 Output Total 35 35 Balance 165 1315 Intake: IV 200 600 Dextrose 5% in Water 1, 200 600 000 ml @ 100 mls/hr IV . [id number] JULI with Sodium Bicarb (1 Meq/ml) 150 ml Rx#:[id number] Oral 750 Output: Urine 35 35 Uretheral (Serrano) 20 Other: Voiding Method Indwelling Catheter # Bowel Movements 2 Weight 72.575 kg 74.1 kg General: Ill-appearing male, appears at stated age, normal weight Derm: no unusual rashes/lesions no unusual ecchymoses, warm, dry Head: atraumatic, normocephalic, symmetric Eyes: EOMI, no lid lag, anicteric sclera, pupils equal round reactive to light ENT: Nose and ears atraumatic, no thrush, no pharyngeal erythema Neck: No thyromegaly, no cervical lymphadenopathy, trachea midline, supple Mouth: no lip lesion, mucus membranes dry Cardiovascular: S1S2 reg, no murmur, positive posterior tibial pulse bilateral, mild bilateral lower extremity edema, capillary refill less than 2 seconds Lungs: Bilateral scattered rhonchi, no rales or wheezing appreciated, no accessory muscle use Abdominal: Distended, no guarding, hypoactive bowel sounds Ext: no gross muscle atrophy, no focal neuro deficits Neuro: Patient not following all commands, difficult to asses Psych: Oriented only to self, Results CBC & Chem 7: 06/07/19 04:40 06/07/19 09:07 Labs: Abnormal Lab Results - Last 24 Hours (Table) 06/06/19 06/06/19 06/06/19 Range/Units 15:43 15:43 15:43 RBC 4.15 L (4.30-5.90) m/uL Lymphocytes # (Manual) 0.95 L (1.0-4.8) k/uL Monocytes # (Manual) (0-1.0) k/uL Myelocytes # (Manual) (0) k/uL VBG pH (7.31-7.41) VBG HCO3 (24-28) mmol/L Sodium 136 L (137-145) mmol/L Potassium 8.4 H* (3.5-5.1) mmol/L Chloride (98-107) mmol/L Carbon Dioxide 15 L (22-30) mmol/L BUN 63 H (9-20) mg/dL Creatinine 2.50 H (0.66-1.25) mg/dL Glucose 174 H (74-99) mg/dL POC Glucose (mg/dL) (75-99) mg/dL Plasma Lactic Acid Alvaro 4.9 H* (0.7-2.0) mmol/L Calcium 8.3 L (8.4-10.2) mg/dL Phosphorus (2.5-4.5) mg/dL Magnesium (1.6-2.3) mg/dL AST (17-59) U/L ALT (21-72) U/L Total Protein 6.2 L (6.3-8.2) g/dL Albumin (3.5-5.0) g/dL 06/06/19 06/06/19 06/06/19 Range/Units 15:43 15:58 16:20 RBC (4.30-5.90) m/uL Lymphocytes # (Manual) (1.0-4.8) k/uL Monocytes # (Manual) (0-1.0) k/uL Myelocytes # (Manual) (0) k/uL VBG pH 7.20 L* (7.31-7.41) VBG HCO3 17 L (24-28) mmol/L Sodium (137-145) mmol/L Potassium (3.5-5.1) mmol/L Chloride (98-107) mmol/L Carbon Dioxide (22-30) mmol/L BUN (9-20) mg/dL Creatinine (0.66-1.25) mg/dL Glucose (74-99) mg/dL POC Glucose (mg/dL) 177 H (75-99) mg/dL Plasma Lactic Acid Alvaro (0.7-2.0) mmol/L Calcium (8.4-10.2) mg/dL Phosphorus 6.4 H (2.5-4.5) mg/dL Magnesium 2.7 H (1.6-2.3) mg/dL AST (17-59) U/L ALT (21-72) U/L Total Protein (6.3-8.2) g/dL Albumin (3.5-5.0) g/dL 06/06/19 06/06/19 06/06/19 Range/Units 19:22 19:44 21:19 RBC (4.30-5.90) m/uL Lymphocytes # (Manual) (1.0-4.8) k/uL Monocytes # (Manual) (0-1.0) k/uL Myelocytes # (Manual) (0) k/uL VBG pH (7.31-7.41) VBG HCO3 (24-28) mmol/L Sodium (137-145) mmol/L Potassium 6.5 H* 6.7 H* (3.5-5.1) mmol/L Chloride 109 H (98-107) mmol/L Carbon Dioxide 18 L (22-30) mmol/L BUN 63 H (9-20) mg/dL Creatinine 2.07 H (0.66-1.25) mg/dL Glucose 109 H (74-99) mg/dL POC Glucose (mg/dL) (75-99) mg/dL Plasma Lactic Acid Alvaro 2.1 H* (0.7-2.0) mmol/L Calcium (8.4-10.2) mg/dL Phosphorus (2.5-4.5) mg/dL Magnesium (1.6-2.3) mg/dL AST (17-59) U/L ALT (21-72) U/L Total Protein (6.3-8.2) g/dL Albumin (3.5-5.0) g/dL 06/07/19 06/07/19 06/07/19 Range/Units 04:40 04:40 07:08 RBC (4.30-5.90) m/uL Lymphocytes # (Manual) 0.43 L (1.0-4.8) k/uL Monocytes # (Manual) 1.35 H (0-1.0) k/uL Myelocytes # (Manual) 0.07 H (0) k/uL VBG pH (7.31-7.41) VBG HCO3 (24-28) mmol/L Sodium 136 L (137-145) mmol/L Potassium 7.0 H* (3.5-5.1) mmol/L Chloride (98-107) mmol/L Carbon Dioxide (22-30) mmol/L BUN 70 H (9-20) mg/dL Creatinine 2.24 H (0.66-1.25) mg/dL Glucose 183 H (74-99) mg/dL POC Glucose (mg/dL) 233 H (75-99) mg/dL Plasma Lactic Acid Alvaro (0.7-2.0) mmol/L Calcium 8.3 L (8.4-10.2) mg/dL Phosphorus (2.5-4.5) mg/dL Magnesium 2.6 H (1.6-2.3) mg/dL AST 102 H (17-59) U/L ALT 90 H (21-72) U/L Total Protein 5.7 L (6.3-8.2) g/dL Albumin 3.1 L (3.5-5.0) g/dL Thrombosis Risk Factor Assmnt - Choose All That Apply Each Factor Represents 1 point: Medical pt on bed rest, Sepsis (< 1month) Each Risk Factor Represents 2 Points: Age 61-74 years Thrombosis Risk Factor Assessment Total Risk Factor Score: 4 Thrombosis Risk Factor Assessment Level: Moderate Risk Assessment and Plan Plan: Acute renal failure w/ hyperkalemia -The patient is currently undergoing hemodialysis in the setting of hyperkalemia along with hypotension and altered mentation -Continue to monitor BMP -Nephrology on board -Bilateral hydronephrosis with hydroureter noted on computed tomography scan -Continue with Serrano catheter -Critical care consulted -Started on Levophed infusion -Obtain further information from family members once they arrive Fecal impaction -Will do manual dis-impaction followed by enema -Surgery consulted from ED due to severe ileus Chronic CHF -Obtain Echocardiogram Type 2 DM -MITALI with FS HTN -Hold home antihypertensives in setting of hypotension HLD -C/w home Lipitor DVT prophylaxis -Lovenox The patient is admitted with an anticipated greater than 2 midnight stay for evaluation of ARF CODE STATUS: Full Code Discussed with: Legal guardian Anticipated discharge date: 3-[address]: Assisted living A total of 45 minutes was spent on the care of this complex patient more than 50% of the time was spent in counseling and care coordination.
[2019-06-07 13:10] LABS: Hemoglobin A1C 6.7 % (4.0-6.0)
--- NOTE | 2019-06-07 16:32 | P.GSCN ---
History of Present Illness Consult date: 06/07/19 History of present illness: This is a 74-year-old male who is currently in the ICU. He has multiple electrolyte abnormalities and obstructive uropathy. Patient resides in an ECF secondary to debility. Patient was found to have a large amount of stool within his colon with the distended colon. This appears to be chronic in nature. Patient is currently passing soft stool and liquid stool. He had a colonoscopy 1 year ago which did not reveal any distal neoplasm. Past Medical History Past Medical History: Coronary Artery Disease (CAD), Chest Pain / Angina, Heart Failure, Dementia, Diabetes Mellitus, GERD/Reflux, Hyperlipidemia, Hypertension Additional Past Medical History / Comment(s): CURRENTLY ON ANTIBX FOR UTI, HX. 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 ATTEMPTED COLONOSCOPY Past Anesthesia/Blood Transfusion Reactions: No Reported Reaction Past Psychological History: No Psychological Hx Reported Smoking Status: Former smoker Past Alcohol Use History: None Reported Past Drug Use History: None Reported Medications and Allergies Home Medications Medication Instructions Recorded Confirmed Type Aspirin [Adult Low Dose Aspirin EC] 81 mg PO DAILY 07/18/17 06/06/19 History Atenolol [Tenormin] 25 mg PO QAM 07/18/17 06/06/19 History Furosemide [Lasix] 10 mg PO QAM 07/18/17 06/06/19 History Lisinopril [Zestril] 2.5 mg PO HS 07/18/17 06/06/19 History Metoclopramide [Reglan] 5 mg PO BID 07/18/17 06/06/19 History Nitroglycerin Sl Tabs [Nitrostat] 1 tab SUBLINGUAL DAILY PRN 07/18/17 06/06/19 History Polyethylene Glycol 3350 [Miralax] 17 gm PO Q48H 07/18/17 06/06/19 History Venlafaxine HCl ER [Effexor Xr] 75 mg PO HS 07/18/17 06/06/19 History metFORMIN HCL [Glucophage Xr] 250 mg PO HS 07/18/17 06/06/19 History Atorvastatin [Lipitor] 40 mg PO HS 08/29/17 06/06/19 History Cholecalciferol [Vitamin D3] 1,000 unit PO DAILY 08/29/17 06/06/19 History Cyanocobalamin (Vitamin B-12) 1,000 mcg PO DAILY 08/29/17 06/06/19 History [Vitamin B-12] Ibuprofen 400 mg PO BID 08/29/17 06/06/19 History Melatonin 10 mg PO HS 08/29/17 06/06/19 History Sulfamethox-Tmp 800-160Mg [Bactrim 1 tab PO Q12HR 08/29/17 06/06/19 History DS 800-160 mg] Venlafaxine HCl [Effexor XR] 150 mg PO HS 08/29/17 06/06/19 History risperiDONE [RisperDAL] 1 mg PO BID@1600,199908/29/17 06/06/19 History Calcium Polycarbophil [Fiber-Lax] 1,250 mg PO BID 06/06/19 06/06/19 History Ibuprofen [Motrin] 400 mg PO BID 06/06/19 06/06/19 History Loperamide [Imodium] 4 mg PO DAILY PRN MDD 4 CAPS/24HRS 06/06/19 06/06/19 History Pantoprazole [Protonix] 40 mg PO BID 06/06/19 06/06/19 History Allergies Allergy/AdvReac Type Severity Reaction Status Date / Time No Known Allergies Allergy Verified 06/06/19 16:00 Surgical - Exam Osteopathic Statement: *. No significant issues noted on an osteopathic structural exam other than those noted in the History and Physical/Consult. Vital Signs Temp Pulse Resp BP Pulse Ox 97.5 F L 60 18 84/50 95 06/06/19 15:26 06/06/19 15:26 06/06/19 15:26 06/06/19 15:26 06/06/19 15:26 - General no distress - Eyes PERRL - Neck trachea midline - Respiratory normal expansion, normal respiratory effort - Cardiovascular Rhythm: regular - Abdomen Soft distended nontender Rectal, soft stool no hard stool palpable - Neurologic normal sensation - Psychiatric responds Results - Labs 06/07/19 04:40 06/07/19 09:07 Abnormal Lab Results - Last 24 Hours (Table) 06/06/19 06/06/19 06/06/19 Range/Units 15:43 15:43 15:43 Lymphocytes # (Manual) 0.95 L (1.0-4.8) k/uL Monocytes # (Manual) (0-1.0) k/uL Myelocytes # (Manual) (0) k/uL VBG pH (7.31-7.41) VBG HCO3 (24-28) mmol/L Sodium 136 L (137-145) mmol/L Potassium 8.4 H* (3.5-5.1) mmol/L Chloride (98-107) mmol/L Carbon Dioxide 15 L (22-30) mmol/L BUN 63 H (9-20) mg/dL Creatinine 2.50 H (0.66-1.25) mg/dL Glucose 174 H (74-99) mg/dL POC Glucose (mg/dL) (75-99) mg/dL Hemoglobin A1c (4.0-6.0) % Plasma Lactic Acid Alvaro 4.9 H* (0.7-2.0) mmol/L Calcium 8.3 L (8.4-10.2) mg/dL Phosphorus (2.5-4.5) mg/dL Magnesium (1.6-2.3) mg/dL AST (17-59) U/L ALT (21-72) U/L Total Protein 6.2 L (6.3-8.2) g/dL Albumin (3.5-5.0) g/dL 06/06/19 06/06/19 06/06/19 Range/Units 15:43 16:20 19:22 Lymphocytes # (Manual) (1.0-4.8) k/uL Monocytes # (Manual) (0-1.0) k/uL Myelocytes # (Manual) (0) k/uL VBG pH 7.20 L* (7.31-7.41) VBG HCO3 17 L (24-28) mmol/L Sodium (137-145) mmol/L Potassium 6.5 H* (3.5-5.1) mmol/L Chloride (98-107) mmol/L Carbon Dioxide (22-30) mmol/L BUN (9-20) mg/dL Creatinine (0.66-1.25) mg/dL Glucose (74-99) mg/dL POC Glucose (mg/dL) (75-99) mg/dL Hemoglobin A1c (4.0-6.0) % Plasma Lactic Acid Alvaro (0.7-2.0) mmol/L Calcium (8.4-10.2) mg/dL Phosphorus 6.4 H (2.5-4.5) mg/dL Magnesium 2.7 H (1.6-2.3) mg/dL AST (17-59) U/L ALT (21-72) U/L Total Protein (6.3-8.2) g/dL Albumin (3.5-5.0) g/dL 06/06/19 06/06/19 06/07/19 Range/Units 19:44 21:19 04:40 Lymphocytes # (Manual) 0.43 L (1.0-4.8) k/uL Monocytes # (Manual) 1.35 H (0-1.0) k/uL Myelocytes # (Manual) 0.07 H (0) k/uL VBG pH (7.31-7.41) VBG HCO3 (24-28) mmol/L Sodium (137-145) mmol/L Potassium 6.7 H* (3.5-5.1) mmol/L Chloride 109 H (98-107) mmol/L Carbon Dioxide 18 L (22-30) mmol/L BUN 63 H (9-20) mg/dL Creatinine 2.07 H (0.66-1.25) mg/dL Glucose 109 H (74-99) mg/dL POC Glucose (mg/dL) (75-99) mg/dL Hemoglobin A1c (4.0-6.0) % Plasma Lactic Acid Alvaro 2.1 H* (0.7-2.0) mmol/L Calcium (8.4-10.2) mg/dL Phosphorus (2.5-4.5) mg/dL Magnesium (1.6-2.3) mg/dL AST (17-59) U/L ALT (21-72) U/L Total Protein (6.3-8.2) g/dL Albumin (3.5-5.0) g/dL 06/07/19 06/07/19 06/07/19 Range/Units 04:40 04:40 07:08 Lymphocytes # (Manual) (1.0-4.8) k/uL Monocytes # (Manual) (0-1.0) k/uL Myelocytes # (Manual) (0) k/uL VBG pH (7.31-7.41) VBG HCO3 (24-28) mmol/L Sodium 136 L (137-145) mmol/L Potassium 7.0 H* (3.5-5.1) mmol/L Chloride (98-107) mmol/L Carbon Dioxide (22-30) mmol/L BUN 70 H (9-20) mg/dL Creatinine 2.24 H (0.66-1.25) mg/dL Glucose 183 H (74-99) mg/dL POC Glucose (mg/dL) 233 H (75-99) mg/dL Hemoglobin A1c 6.7 H (4.0-6.0) % Plasma Lactic Acid Alvaro (0.7-2.0) mmol/L Calcium 8.3 L (8.4-10.2) mg/dL Phosphorus (2.5-4.5) mg/dL Magnesium 2.6 H (1.6-2.3) mg/dL AST 102 H (17-59) U/L ALT 90 H (21-72) U/L Total Protein 5.7 L (6.3-8.2) g/dL Albumin 3.1 L (3.5-5.0) g/dL 06/07/19 Range/Units 09:07 Lymphocytes # (Manual) (1.0-4.8) k/uL Monocytes # (Manual) (0-1.0) k/uL Myelocytes # (Manual) (0) k/uL VBG pH (7.31-7.41) VBG HCO3 (24-28) mmol/L Sodium (137-145) mmol/L Potassium 6.0 H (3.5-5.1) mmol/L Chloride (98-107) mmol/L Carbon Dioxide (22-30) mmol/L BUN (9-20) mg/dL Creatinine (0.66-1.25) mg/dL Glucose (74-99) mg/dL POC Glucose (mg/dL) (75-99) mg/dL Hemoglobin A1c (4.0-6.0) % Plasma Lactic Acid Alvaro (0.7-2.0) mmol/L Calcium (8.4-10.2) mg/dL Phosphorus (2.5-4.5) mg/dL Magnesium (1.6-2.3) mg/dL AST (17-59) U/L ALT (21-72) U/L Total Protein (6.3-8.2) g/dL Albumin (3.5-5.0) g/dL Diabetes panel 06/06/19 06/06/19 06/06/19 Range/Units 15:43 19:22 21:19 Sodium 136 L 138 (137-145) mmol/L Potassium 8.4 H* 6.5 H* 6.7 H* (3.5-5.1) mmol/L Chloride 107 109 H (98-107) mmol/L Carbon Dioxide 15 L 18 L (22-30) mmol/L BUN 63 H 63 H (9-20) mg/dL Creatinine 2.50 H 2.07 H (0.66-1.25) mg/dL Glucose 174 H 109 H (74-99) mg/dL Hemoglobin A1c (4.0-6.0) % Calcium 8.3 L 8.4 (8.4-10.2) mg/dL AST 41 (17-59) U/L ALT 29 (21-72) U/L Alkaline Phosphatase 94 (38-126) U/L Total Protein 6.2 L (6.3-8.2) g/dL Albumin 3.5 (3.5-5.0) g/dL 06/07/19 06/07/19 06/07/19 Range/Units 04:40 04:40 09:07 Sodium 136 L (137-145) mmol/L Potassium 7.0 H* 6.0 H (3.5-5.1) mmol/L Chloride 103 (98-107) mmol/L Carbon Dioxide 22 (22-30) mmol/L BUN 70 H (9-20) mg/dL Creatinine 2.24 H (0.66-1.25) mg/dL Glucose 183 H (74-99) mg/dL Hemoglobin A1c 6.7 H (4.0-6.0) % Calcium 8.3 L (8.4-10.2) mg/dL AST 102 H (17-59) U/L ALT 90 H (21-72) U/L Alkaline Phosphatase 89 (38-126) U/L Total Protein 5.7 L (6.3-8.2) g/dL Albumin 3.1 L (3.5-5.0) g/dL Calcium panel 06/06/19 06/06/19 06/06/19 Range/Units 15:43 15:43 21:19 Calcium 8.3 L 8.4 (8.4-10.2) mg/dL Phosphorus 6.4 H (2.5-4.5) mg/dL Albumin 3.5 (3.5-5.0) g/dL 06/07/19 Range/Units 04:40 Calcium 8.3 L (8.4-10.2) mg/dL Phosphorus 4.5 (2.5-4.5) mg/dL Albumin 3.1 L (3.5-5.0) g/dL Pituitary panel 06/06/19 06/06/19 06/06/19 Range/Units 15:43 19:22 21:19 Sodium 136 L 138 (137-145) mmol/L Potassium 8.4 H* 6.5 H* 6.7 H* (3.5-5.1) mmol/L Chloride 107 109 H (98-107) mmol/L Carbon Dioxide 15 L 18 L (22-30) mmol/L BUN 63 H 63 H (9-20) mg/dL Creatinine 2.50 H 2.07 H (0.66-1.25) mg/dL Glucose 174 H 109 H (74-99) mg/dL Calcium 8.3 L 8.4 (8.4-10.2) mg/dL 06/07/19 06/07/19 Range/Units 04:40 09:07 Sodium 136 L (137-145) mmol/L Potassium 7.0 H* 6.0 H (3.5-5.1) mmol/L Chloride 103 (98-107) mmol/L Carbon Dioxide 22 (22-30) mmol/L BUN 70 H (9-20) mg/dL Creatinine 2.24 H (0.66-1.25) mg/dL Glucose 183 H (74-99) mg/dL Calcium 8.3 L (8.4-10.2) mg/dL Adrenal panel 06/06/19 06/06/19 06/06/19 Range/Units 15:43 19:22 21:19 Sodium 136 L 138 (137-145) mmol/L Potassium 8.4 H* 6.5 H* 6.7 H* (3.5-5.1) mmol/L Chloride 107 109 H (98-107) mmol/L Carbon Dioxide 15 L 18 L (22-30) mmol/L BUN 63 H 63 H (9-20) mg/dL Creatinine 2.50 H 2.07 H (0.66-1.25) mg/dL Glucose 174 H 109 H (74-99) mg/dL Calcium 8.3 L 8.4 (8.4-10.2) mg/dL Total Bilirubin 1.3 (0.2-1.3) mg/dL AST 41 (17-59) U/L ALT 29 (21-72) U/L Alkaline Phosphatase 94 (38-126) U/L Total Protein 6.2 L (6.3-8.2) g/dL Albumin 3.5 (3.5-5.0) g/dL 06/07/19 06/07/19 Range/Units 04:40 09:07 Sodium 136 L (137-145) mmol/L Potassium 7.0 H* 6.0 H (3.5-5.1) mmol/L Chloride 103 (98-107) mmol/L Carbon Dioxide 22 (22-30) mmol/L BUN 70 H (9-20) mg/dL Creatinine 2.24 H (0.66-1.25) mg/dL Glucose 183 H (74-99) mg/dL Calcium 8.3 L (8.4-10.2) mg/dL Total Bilirubin 1.1 (0.2-1.3) mg/dL AST 102 H (17-59) U/L ALT 90 H (21-72) U/L Alkaline Phosphatase 89 (38-126) U/L Total Protein 5.7 L (6.3-8.2) g/dL Albumin 3.1 L (3.5-5.0) g/dL Assessment and Plan Assessment: Constipation, retained stool. 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 Patient has chronic constipation. He did have a colonoscopy 1 year ago did not show any neoplasms. I recommend enemas, suppositories, stool softeners, if this does not work patient may benefit from GoLYTELY down his NG tube. Continue with no ninvasive medical options. I do not believe patient would benefit from a surgery at this time. He is having a large amount of soft stool as was evident during the rectal exam that I performed.
[2019-06-07 16:33] LABS: Glucose,Whole Blood 88 mg/dL (75-99)
[2019-06-07] MEDS ORDERED: MORPHINE SULFATE 2 MG/ML SYRINGE IVP PRN (16:34)
[2019-06-07 17:07] VITALS: BP 116/88; PULSE 67; RESP 38
[2019-06-07] MEDS ORDERED: INSULIN ASPART (NovoLOG) 100 UNIT/ML VIAL SQ SCH (17:30)
[2019-06-07 18:22] LABS: Hepatitis B Surface AB- Quant 3.5 mIU/mL; Hepatitis B Surface Antibody Non-Reactive (Non-Reactive); Hepatitis B Surface Antigen Non-Reactive (Non-Reactive)
--- NOTE | 2019-06-08 07:36 | ECHOF ---
Referral Reason:fluid overload MEASUREMENTS -------- HEIGHT: 172.7 cm WEIGHT: 73.9 kg BP: RVIDd: 3.5 cm (< 3.3) IVSd: 0.9 cm (0.6 - 1.1) LVIDd: 4.7 cm (3.9 - 5.3) LVPWd: 1.1 cm (0.6 - 1.1) IVSs: 1.1 cm LVIDs: 4.3 cm LVPWs: 1.1 cm LA Diam: 4.6 cm (2.7 - 3.8) Ao Diam: 3.1 cm (2.0 - 3.7) AV Cusp: 1.9 cm (1.5 - 2.6) LA Diam: 3.6 cm (2.7 - 3.8) MV EXCURSION: 17.570 mm (> 18.000) MV EF SLOPE: 113 mm/s (70 - 150) MV E Sebastian: 0.21 m/s MV DecT: 190 ms MV A Sebastian: 0.52 m/s MV E/A Ratio: 0.41 AV maxP.86 mmHg AV meanP.07 mmHg RAP: 5.00 mmHg RVSP: 17.95 mmHg FINDINGS -------- Undetermined rhythm. This was a techncally difficult study with suboptimal views, , Lumason utilized for enhancement of im ages. The left ventricular size is normal. There is severe global hypokinesis of LV . Overall left vent ricular systolic function is severely impaired with, an EF between 20 - 25 %. The right ventricle is normal in size. The left atrial size is normal. The right atrial size is normal. 5.0mg OF Lumason UTLIZED: 2 OR MORE WALL SEGMENTS NOT VISUALIZED. Peak/mean gradient across the Aortic Valve is 6.86mmHg / 3.07mmHg. Mild mitral annular calcification present. Mild mitral regurgitation is present. Mild tricuspid regurgitation present. Right ventricular systolic pressure is normal at < 35 mmHg. There is no evidence of pulmonary hypertension. The pulmonic valve was not well visualized. The aortic root size is normal. There is no pericardial effusion. CONCLUSIONS -------- 1. Undetermined rhythm. 2. This was a techncally difficult study with suboptimal views, , Lumason utilized for enhancement of images. 3. The left ventricular size is normal. 4. There is severe global hypokinesis of LV . 5. The right ventricle is normal in size. 6. The left atrial size is normal. 7. The right atrial size is normal. 8. 5.0mg OF Lumason UTLIZED: 2 OR MORE WALL SEGMENTS NOT VISUALIZED. 9. Peak/mean gradient across the Aortic Valve is 6.86mmHg / 3.07mmHg. 10. Mild mitral annular calcification present. 11. Mild mitral regurgitation is present. 12. Mild tricuspid regurgitation present. 13. Right ventricular systolic pressure is normal at < 35 mmHg. 14. There is no evidence of pulmonary hypertension. 15. The pulmonic valve was not well visualized. 16. The aortic root size is normal. 17. There is no pericardial effusion. DIRECTOR TELEVISION NEWS: Jeannie Santos RDCS
--- NOTE | 2019-06-08 15:17 | P.DS ---
Providers Date of admission: 06/06/19 20:10 Expected date of discharge: 06/07/19 Attending physician: Marilyn Preston MD Consults: 06/06/19 20:06 Consult Physician Urgent Consulting Provider: Sobeida Schroeder Consult Reason/Comments: HyperK Do you want consulting provider notified?: Yes 06/07/19 06:23 Consult Physician Stat Consulting Provider: Renée Serrano Consult Reason/Comments: Hemodialysis cath Do you want consulting provider notified?: Already Contacted 06/07/19 06:33 Consult Physician Routine Consulting Provider: Gerson Harris Consult Reason/Comments: Ilieus/Fecal impaction Do you want consulting provider notified?: Yes, Notify in am 06/07/19 08:40 Consult Physician Routine Consulting Provider: Vincent Milan Consult Reason/Comments: Hypotension, Sepsis Do you want consulting provider notified?: Already Contacted Primary care physician: [facility] Course: The patient is a 74 yo M, resident of an assisted living facility ([facility]), with a PMH of CAD, CHF (unknown type), dementia (cognitive impairment since ), HTN, HLD, and Type 2 DM had presented to the ED for decreased responsiveness. History was obtained from chart since patient was a very poor historian and not answering questions appropriately. He had hypotension in the ED along with a lactic acidosis and significant hyperkalemia. The patient had undergone an extensive evaluation in the emergency room w/ CT abd/pelvis showing fecal impaction with no free air along with esvin hydronephrosis with compression of the distal ureters. As per the niece at the bedside (Liebler, Jena - Legal guardian), the patient was normally oriented to self and place and was able to ambulate without assistance though had been getting weaker over the past 1 year. Laboratory evaluation had revealed a lactate of 4.9, K of 6.7, BUN 63, creatinine 2.07, WBC count 6.3, Hgb 13.4, platelets 251, and pH of 7.20. A hemodialysis catheter was inserted and nephrology was consulted. The patient's blood pressure continued to be low in the ICU for which a levophed infusion was ordered. The patient underwent hemodialysis on the morning of 06/07. Furthermore, surgery was consulted for the fecal impaction and a manual dis- impaction was performed followed by administration of an enema. 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 The patient began passing soft stools. Echocardiogram was ordered and revealed severely impaired LV systolic function w/ EF 20-25%. The goals of care were discussed with the legal guardian at the bedside initially who had noted that she wishes for patient to be a full-code though was waiting for additional family members' input. The patient's condition began to deteriorate with family at the bedside. The family members informed the medical team that they wished for the patient to be a No-Code with comfort care measures only. The patient's code status was subsequently changed. The patient on 06/07 at 16:46 with family at the bedside. Discharge diagnosis: DARIUS w/ hyperkalemia; Altered mental status; Large bowel ileus; Severe systolic CHF; Hx of dementia/cognitive impairment; Type 2 DM; HTN; HLD; Lactic acidosis A total of 45 minutes of time were spent preparing this complex discharge summary. Patient Condition at Discharge: Critical Plan - Discharge Summary New Discharge Prescriptions: No Action Atenolol [Tenormin] 25 mg PO QAM metFORMIN HCL [Glucophage Xr] 250 mg PO HS Venlafaxine HCl ER [Effexor Xr] 75 mg PO HS Nitroglycerin Sl Tabs [Nitrostat] 1 tab SUBLINGUAL DAILY PRN PRN Reason: Chest Pain Metoclopramide [Reglan] 5 mg PO BID Aspirin [Adult Low Dose Aspirin EC] 81 mg PO DAILY Polyethylene Glycol 3350 [Miralax] 17 gm PO Q48H Furosemide [Lasix] 10 mg PO QAM Lisinopril [Zestril] 2.5 mg PO HS risperiDONE [RisperDAL] 1 mg PO BID@1600,2000 Venlafaxine HCl [Effexor XR] 150 mg PO HS Cholecalciferol [Vitamin D3] 1,000 unit PO DAILY Sulfamethox-Tmp 800-160Mg [Bactrim DS 800-160 mg] 1 tab PO Q12HR Atorvastatin [Lipitor] 40 mg PO HS Melatonin 10 mg PO HS Ibuprofen 400 mg PO BID Cyanocobalamin (Vitamin B-12) [Vitamin B-12] 1,000 mcg PO DAILY Loperamide [Imodium] 4 mg PO DAILY PRN MDD 4 CAPS/24HRS PRN Reason: Loose Stool Pantoprazole [Protonix] 40 mg PO BID Ibuprofen [Motrin] 400 mg PO BID Calcium Polycarbophil [Fiber-Lax] 1,250 mg PO BID Discharge Medication List Aspirin [Adult Low Dose Aspirin EC] 81 mg PO DAILY 07/18/17 [History] Atenolol [Tenormin] 25 mg PO QAM 07/18/17 [History] Furosemide [Lasix] 10 mg PO QAM 07/18/17 [History] Lisinopril [Zestril] 2.5 mg PO HS 07/18/17 [History] Metoclopramide [Reglan] 5 mg PO BID 07/18/17 [History] Nitroglycerin Sl Tabs [Nitrostat] 1 tab SUBLINGUAL DAILY PRN 07/18/17 [History] Polyethylene Glycol 3350 [Miralax] 17 gm PO Q48H 07/18/17 [History] Venlafaxine HCl ER [Effexor Xr] 75 mg PO HS 07/18/17 [History] metFORMIN HCL [Glucophage Xr] 250 mg PO HS 07/18/17 [History] Atorvastatin [Lipitor] 40 mg PO HS 08/29/17 [History] Cholecalciferol [Vitamin D3] 1,000 unit PO DAILY 08/29/17 [History] Cyanocobalamin (Vitamin B-12) [Vitamin B-12] 1,000 mcg PO DAILY 08/29/17 [History] Ibuprofen 400 mg PO BID 08/29/17 [History] Melatonin 10 mg PO HS 08/29/17 [History] Sulfamethox-Tmp 800-160Mg [Bactrim DS 800-160 mg] 1 tab PO Q12HR 08/29/17 [History] Venlafaxine HCl [Effexor XR] 150 mg PO HS 08/29/17 [History] risperiDONE [RisperDAL] 1 mg PO BID@1600,2000 08/29/17 [History] Calcium Polycarbophil [Fiber-Lax] 1,250 mg PO BID 06/06/19 [History] Ibuprofen [Motrin] 400 mg PO BID 06/06/19 [History] Loperamide [Imodium] 4 mg PO DAILY PRN MDD 4 CAPS/24HRS 06/06/19 [History] Pantoprazole [Protonix] 40 mg PO BID 06/06/19 [History] Discharge Disposition: - Preliminary Cause of Preliminary Cause of : Renal Failure
--- NOTE | 2019-06-15 11:07 | CDI ---
Documentation Clarification Form Date: 06/15/2019 10:34:30 AM From: Milena Bryan RN, CCDS Email: [email or web address] Admit Date: 06/06/2019 8:10:00 PM Patient Name: Jose Angel Sterling Visit Number: [id number] Discharge Date: 06/07/2019 2:46:00 PM ATTENTION: The Clinical Documentation Specialists (CDI) and [facility] Coding Staff appreciate your assistance in clarifying documentation. Please respond to the clarification below the line at the bottom and electronically sign. The CDI & [facility] Coding staff will review the response and follow-up if needed. Please note: Queries are made part of the Legal Health Record. If you have any questions, please contact the author of this message via ITS. Dr. Marilyn Preston Altered Mental Status was documented in the 06/06 ED note, 06/07 H&P and the 06/08 discharge summary. History/Risk Factors: CAD, CHF, dementia (cognitive impairment since ), HTN, HLD, and Type 2 DM had presented to the ED for decreased responsiveness. Currently on Bactrim for a UTI Clinical Indicators: A&Ox1 only, Not answering questions appropriately, distended abdomen, hypotensive BP 84/50 on 06/06, profound weakness, hyperkalemia, fecal impaction Labs: K+ 6.5>6.0>7.8. Cr 2.07>2.50>2.24. Lactic acid 4.9>2.1>1.2>1.4. CXR: 06/06 xray showed some intestinal ileus. CT of abdomen and pelvis: 06/06 Markedly dilated colon especially the recto- sigmoid colon with rectal fecal impaction. No free air. Dilation is significantly increased compared to old CT scan. This is consistent with generalized large bowel ileus. Mild bilateral hydronephrosis increased compared to last exam and probably due to extrinsic compression on the distal ureters. There is some patchy atelectasis at the lung bases similar to old exam. Treatment: Hemodialysis, D5W with 3 amps of bicarbonate at 100 mL an hour, NGT for distended abdomen and ileus, IV Levophed, IV Ceftriaxone, IV Zosyn, manual disimpaction followed by enemas In your professional opinion, please clarify the etiology of the Altered Mental Status, if known. Metabolic Encephalopathy likely secondary to renal failure with metabolic acidosis Other condition (please specify) Unable to determine MTDD
--- NOTE | 2019-06-15 12:20 | CDI ---
Documentation Clarification Form Date: 06/15/2019 CDS: Milena Bryan RN, CCDS Email: [email or web address] Admit Date: 06/06/2019 Patient Name: Jose Angel Sterling ATTENTION: The Clinical Documentation Specialists (CDI) and [facility] Coding Staff appreciate your assistance in clarifying documentation. Please respond to the clarification below the line at the bottom and electronically sign. The CDI & [facility] Coding staff will review the response and follow-up if needed. Please note: Queries are made part of the Legal Health Record. If you have any questions, please contact the author of this message via ITS. Dr. Preston, The patient was with expiratory wheezes and diminished breath sounds per Respiratory Therapist. History/Risk Factors: CAD, CHF, HTN. Presented to the ED for decreased responsiveness. Clinical Indicators: altered mental status, weakness, wheezing, decreased breath sounds, rapid breathing, hypotensive Vital signs: HR 92, RR 18-56, BP 80/50's Pulse oximetry: 89% 2LNC on 06/06, 90% 15L Non-rebreather mask on 06/07 Lung/Breathing assessment: expiratory wheezes, rhonchi and decreased breath sounds VBG: pH 7.20, HCO3 17, pCO2 45 Treatment: Hemodialysis, IV Levophed for hypotension Breathing treatment: Albuterol/Atrovent nebulizers O2: 2LNC to 15L Non-rebreather mask In your professional opinion, can you please clarify if these findings signify one of the following conditions? Acute Hypoxic Respiratory Failure Other Diagnosis, please specify Unable to determine Specificity: If known, further specify (if known): With hypercapnia? (pCO2 >50 and pH <7.35) With hypoxia? (pO2 <60 mm Hg or SpO2 <91% on room air) MTDD
--- NOTE | 2019-06-15 12:51 | CDI ---
Documentation Clarification Form Date: 06/15/2019 CDS: Milena Bryan RN, CCDS Email: [email or web address] Admit Date: 06/06/2019 Patient Name: Jose Angel Sterling ATTENTION: The Clinical Documentation Specialists (CDI) and [facility] Coding Staff appreciate your assistance in clarifying documentation. Please respond to the clarification below the line at the bottom and electronically sign. The CDI & [facility] Coding staff will review the response and follow-up if needed. Please note: Queries are made part of the Legal Health Record. If you have any questions, please contact the author of this message via ITS. Dr. Preston, The patient presented with hypotension, syncope and altered mental status. History/Risk Factors: Dementia (cognitive impairment since ), presented to the ED for decreased responsiveness, altered mental status and syncope. Currently on Bactrim for a UTI. [facility] resident. Clinical Indicators: A&Ox1 only, not answering questions appropriately, altered mental status, weakness, significant hyperkalemia with K+ of 8.4, distended abdomen, hypotensive with BP of 80/50 on 06/06, fecal impaction/ileus/atelectasis on CXR and bilateral hydronephrosis on CT scan. WBC: 6.3>7.1 Lactic acid: 4.9>2.1>1.4 Blood cultures: no growth Vitals signs: HR 60-111, BP 84/50-72/49, T 97.5-100.0 Treatment: IV Levophed, IV Zosyn, IV Ceftriaxone, IVF's, IV bolus, Hemodialysis IV Bolus: 0.9 NS 3L total on 06/06 followed by 0.9 NS @75/hr In your professional opinion, please clarify if these findings signify one of the following conditions, whether the condition is POA, and cause, if known: Condition Sepsis Severe Sepsis Septic Shock Other, please specify Unable to determine Present on Admission Yes No Identify the (suspected) organism Link or clarify if there is associated (due to/with): Organ failure Shock MTDD
--- NOTE | 2019-06-15 12:59 | CDI ---
Documentation Clarification Form Date: 06/15/2019 CDS: Milena Bryan RN, CCDS Email: [email or web address] Admit Date: 06/06/2019 Patient Name: Jose Angel Sterling ATTENTION: The Clinical Documentation Specialists (CDI) and [facility] Coding Staff appreciate your assistance in clarifying documentation. Please respond to the clarification below the line at the bottom and electronically sign. The CDI & [facility] Coding staff will review the response and follow-up if needed. Please note: Queries are made part of the Legal Health Record. If you have any questions, please contact the author of this message via ITS. Dr. Preston, Documentation in the H&P and discharge summary states: The patient's blood pressure continued to be low in the ICU for which a Levophed infusion was ordered. History/Risk Factors: Dementia (cognitive impairment since ), presented to the ED for decreased responsiveness, altered mental status and syncope. Currently on Bactrim for a UTI. [facility] resident. Clinical Indicators: A&Ox1 only, not answering questions appropriately, altered mental status, weakness, significant hyperkalemia with K+ of 8.4, distended abdomen, hypotensive with BP of 80/50 on 06/06, fecal impaction/ileus/atelectasis on CXR and bilateral hydronephrosis on CT scan. Cr 2.50 - acute renal failure WBC: 6.3>7.1 Lactic acid: 4.9>2.1>1.4 Blood cultures: no growth Vitals signs: HR 60-111, BP 84/50-72/49, T 97.5-100.0 Treatment: IV Levophed, IV Zosyn, IV Ceftriaxone, IVF's, IV bolus, Hemodialysis IV Bolus: 0.9 NS 3L total on 06/06 followed by 0.9 NS @75/hr In your professional opinion, can you please clarify if the above is clinically significant for: Septic Shock Suspected or known causative organism Any associated organ failure Cardiogenic Shock Cause Hypovolemic Shock Cause Other, please specify Unable to determine MTDD
== END 2019-06-07 14:46 | disposition expired | DRG 682 ==
LOC: EEVIPCON 15:18 → EC 15:18 → 2SICU 20:10
PROVIDERS: ADMIT Internal Medicine; ATTEND Internal Medicine
PROC: 5A1D70Z Performance of Urinary Filtration, Intermittent, Less than 6 Hours Per Day (ICD-10-PCS; principal; 2019-06-07)
PROC: 06HM33Z Insertion of Infusion Device into Right Femoral Vein, Percutaneous Approach (ICD-10-PCS; 2019-06-07)
DX: N17.0 Acute kidney failure with tubular necrosis (principal); G93.41 Metabolic encephalopathy; J96.01 Acute respiratory failure with hypoxia; E87.2 Acidosis; I50.22 Chronic systolic (congestive) heart failure; K56.7 Ileus, unspecified; Z16.39 Resistance to other specified antimicrobial drug; Z79.82 Long term (current) use of aspirin; Z79.84 Long term (current) use of oral hypoglycemic drugs; Z79.899 Other long term (current) drug therapy; Z86.14 Personal history of Methicillin resistant Staphylococcus aureus infection; Z87.891 Personal history of nicotine dependence; E11.9 Type 2 diabetes mellitus without complications; E78.5 Hyperlipidemia, unspecified; E86.0 Dehydration; E87.5 Hyperkalemia; F03.90 Unspecified dementia, unspecified severity, without behavioral disturbance, psychotic disturbance, mood disturbance, and anxiety; I11.0 Hypertensive heart disease with heart failure; I25.10 Atherosclerotic heart disease of native coronary artery without angina pectoris; K21.9 Gastro-esophageal reflux disease without esophagitis; K56.41 Fecal impaction; Z66 Do not resuscitate; Z51.5 Encounter for palliative care; N13.30 Unspecified hydronephrosis; Z90.49 Acquired absence of other specified parts of digestive tract; Z98.49 Cataract extraction status, unspecified eye
CPT/HCPCS: 36415; 36556; 71045; 74018; 74176; 80048; 80053; 82533; 82803; 83036; 83605; 83735; 84100; 84132; 84484; 85025; 85610; 85730; 86704; 86706; 87040; 87324; 87340; 90935; 93005; 93306; 94640; 94644; 96360; 96365; 96367; 96368; 96375; 99291; 99292